=== PATIENT | female | born 1940 | race African-American/Black ===

== ENCOUNTER 2022-05-08 03:44 | Emergency (ER) | payer MEDICARE ==
[~2022-05-08] VITALS: Ht 162.6 cm; Wt 86.2 kg
[2022-05-08 03:48] VITALS: BP_SYST 121
--- NOTE | 2022-05-08 04:15 | NUR ---
Patient to ER bed 03 for evaluation. Side rails up.
--- NOTE | 2022-05-08 04:20 | NUR ---
BG was 223. Dr. Jara made aware.
--- NOTE | 2022-05-08 04:25 | NUR ---
81 y/o F ambulated to ED with c/o generalized itching and hives x3 days. Denies any respiratory distress or chest pain. Denies having any known allergies and is unaware of what might've provoked the symptoms. Arrived to ED in no acute distress. breathing adequately on RA.
--- NOTE | 2022-05-08 04:25 | NUR ---
81 y/o ambulated to ED with c/o generalized itching and urticaria x3 days. Denies any respiratory distress or chest pain. No known allergies, denies trying anything new that might've triggered symptoms. Reports PMH of HTN and DM. Arrived to
--- NOTE | 2022-05-08 04:30 | NUR ---
Dr. Jara at bedside with patient for evaluation.
[2022-05-08] MEDS ORDERED: LORazepam 1 MG TABLET PO ONE (04:45)
[2022-05-08] MEDS ORDERED: FAMOTIDINE 20 MG TABLET PO ONE (04:45)
[2022-05-08] MEDS ORDERED: DIPHENHYDRAMINE INJ 50 MG/ML VIAL IM ONE (04:45)
[2022-05-08] MEDS ORDERED: LORazepam 1 MG TABLET ONE (04:52)
[2022-05-08] MEDS ORDERED: HYDROCORTISONE 1%, 28.35 GM TOPICAL CREAM TP PRN (05:00)
[2022-05-08] MEDS ORDERED: HYDROCORTISONE 2.5%, 30 GM TOPICAL CREAM TP PRN (05:00)
--- NOTE | 2022-05-08 05:13 | NUR ---
EKG canceled per Dr. Sherry portillo.
[2022-05-08 06:31] LABS: ANION GAP 9 (5-15); CALCIUM 7.5 mg/dL (8.4-11.0); CHLORIDE 104 mmol/L (98-107); CREATININE 1.22 mg/dL (0.55-1.30); GLUCOSE 161 mg/dL (70-99); POTASSIUM 4.4 mmol/L (3.5-5.1); SODIUM SERUM 134 mmol/L (136-145); UREA NITROGEN, BLOOD 50 mg/dL (8-21)
[2022-05-08 06:34] LABS: BASOPHILS % (AUTO) 0.4 % (0.0-2.0); EOSINOPHILS % (AUTO) 0.7 % (0.0-4.0); HEMATOCRIT 34.8 % (36-48); HEMOGLOBIN 11.7 g/dL (12.0-16.0); LYMPHOCYTES # (AUTO) 1.5 K/uL (1.0-5.5); LYMPHOCYTES % (AUTO) 21.2 % (20.5-51.5); MEAN CORPUSCULAR HEMOGLOBIN 32 pg (27-31); MEAN CORPUSCULAR HGB CONC 34 % (32-36); MEAN CORPUSCULAR VOLUME 94 fL (79.0-98.0); MONOCYTES # (AUTO) 0.6 K/uL (0.0-1.0); MONOCYTES % (AUTO) 8.6 % (1.7-9.3); NEUTROPHILS # (AUTO) 4.8 K/uL (1.8-7.7); NEUTROPHILS % (AUTO) 69.1 % (40.0-70.0); PLATELET COUNT (AUTO) 318 K/uL (130-430); RED BLOOD CELL COUNT(AUTO) 3.71 MIL/uL (4.2-6.2); RED CELL DISTRIBUTION WIDTH 14.6 % (9.0-15.0); WHITE BLOOD COUNT (AUTO) 6.9 K/uL (4.8-10.8)
[2022-05-08 06:37] LABS: ALANINE AMINOTRANSFERASE 20 U/L (12-78); ASPARTATE AMINOTRANSFERASE 14 U/L (10-37); TOTAL BILIRUBIN 0.3 mg/dL (0.0-1.0)
[2022-05-08] MEDS ORDERED: LORA-259 PO (07:01)
[2022-05-08] MEDS ORDERED: DIPH25CA83 PO (07:01)
--- NOTE | 2022-05-08 07:13 | NUR ---
Patient given written and verbal discharge instructions and verbalizes understanding. ER MD ZENDEJAS discussed with patient the results and treatment provided. Patient in stable condition. ID arm band removed. Rx of Ativan and Benaryl given. Patient educated on pain management and to follow up with PMD. Pain Scale 0/10 Opportunity for questions provided and answered. Medication side effect fact sheet provided.
[2022-05-08 07:14] VITALS: BP_SYST 108
== END 2022-05-08 07:13 | disposition home or self-care (01) ==
LOC: SED 03:44
DX: L50.9 Urticaria, unspecified (principal); E11.9 Type 2 diabetes mellitus without complications; I10 Essential (primary) hypertension; Z79.899 Other long term (current) drug therapy
CPT/HCPCS: 36415; 80053; 85025; 96372; 99283; J1200

== ENCOUNTER 2023-02-08 20:14 | Emergency (ER) | payer MEDICARE ==
[~2023-02-08] VITALS: Ht 162.6 cm; Wt 95.3 kg
[~2023-02-08 20:14] MED LIST: DIPH25CA83 PO
[2023-02-08 20:22] VITALS: BP_SYST 167
== END 2023-02-09 00:31 | disposition left against medical advice (07) ==
LOC: SED 20:14
DX: H92.02 Otalgia, left ear (principal); Z53.21 Procedure and treatment not carried out due to patient leaving prior to being seen by health care provider
CPT/HCPCS: 99281